=== PATIENT | male | born 1975 | race American Indian/Alaskan Native ===

== ENCOUNTER → 2016-05-24 | Outpatient (CLI) | payer OTHER ==
[~2016-05-24] VITALS: Ht 175.3 cm; Wt 107.0 kg
[~2016-05-24] MED LIST: ALBI1INJ2 SQ; GLYB1.253 PO; HYDR-3516 PO; INSULIN HUMAN REGULAR 1,000 UNITS/10 ML VIAL SQ PRN; LACTATED RINGER'S 1000 ML IV SCH; LISI10TA PO; METF-382 PO; METOPROLOL TARTRATE 25 MG TAB PO PRN; OMEP20TA PO; PROPOFOL 200 MG/20 ML AMP IV ONE; SODIUM CHLORID 0.9% 500 ML IV SCH; VENTAER INH
[2016-05-24 13:06] VITALS: BP 140/88; PULSE 77; RESP 18; TEMP 98.1; O2SAT 100
[2016-05-24 14:53] VITALS: BP 122/82; PULSE 79; RESP 16; O2SAT 99
--- NOTE | 2016-05-30 10:45 | MR ---
cc: DADA GARCIA SAVITHA B. DO DATE 05/24/2016 DATE OF 1975 ENDOSCOPIST Dada Garcia MD [employer]IMARY PL[employer] GUARD Dr. Kermit Hernández PRIMARY CARE PHYSICIAN Dr. Marisela Vuong PROCEDURE EGD with biopsies. INDICATIONS Odynophagia. The patient with a history of accidentally getting piece of metal in the posterior pharynx, currently has mild oral pain in the posterior pharynx. Prior to procedure the patient's lungs were clear. Heart sounds were normal. Mental status alert, awake and oriented times three. Monitoring was done the appropriate monitor at all times, heart rate, respiration, pulse oximetry monitored and they remained within normal limits with ASSISTED LIVING CARE MANAGER support. Informed consent was obtained. Risks, benefits and alternatives including but not limited to the risk of bleeding, infection, perforation, adverse reaction to sedation, failure to identify pathology were explained to the patient who accepted all risks. The patient was prepped in the left lateral position. IV sedation was given by the department of anesthesia which included propofol. The scope tip of the Pentax gastroscope was advanced into the oropharynx under direct visualization. Upon entering in the posterior pharynx in the left lateral tonsillar area he had several small superficial linear ulcerations that are noted. The scope was navigated past this evaluating the uvula. The uvula appears to be slightly edematous with a white based ulcer on the uvula itself. No active bleeding sites were noted. No foreign body was identified within this area. The scope was navigated past this into the posterior pharynx just proximal to the vocal cords and this area appears within normal limits. Again no foreign body was noted. The scope was easily navigated past this point into the proximal middle distal third of the esophagus which appeared grossly normal. The stomach was entered. Gastric fluid was suctioned. Minimal gastritis was noted and therefore, this was biopsied for H. Pylori. The scope tip was retroflexed. The cardia, fundus and body of the stomach were examined and were free of any pathology. The scope was straightened, advanced into the second portion of the duodenum which was examined and which was free of pathology. The scope was withdrawn back and completely withdrawal. The patient tolerated the procedure well, was sent to recovery without any immediate complications. IMPRESSION 1. Several linear shallow superficial ulcerations in the lateral tonsillar area. No active bleeding. No foreign body noted. 2. A white based ulcer on the uvula with some mild surrounding edema not causing any significant obstruction. 3. Normal posterior pharynx including normal vocal cords. 4. Normal esophagus. 5. Minimal gastritis. 6. Normal duodenum. RECOMMENDATIONS 1. Await biopsy results for H pylori. 2. The patient given some Xylocaine spray with a straw which may help to numb the back of the area to help him for symptomatic relief. He has already taken a course of steroids to help with edema and swelling. I do not believe this is necessary at this time. 3. I advised him to continue conservative therapy for now. If symptoms persist then may need evaluation with an ENT physician. Overall, his symptoms are slowly improving, therefore this likely will resolve with watchful waiting. Dada Garcia MD KRP/KK /3:08 PM /10:32 AM CARL
== END ==
LOC: HEND 12:15
PROVIDERS: ATTEND Internal Medicine Gastroenterology
DX: R13.12 Dysphagia, oropharyngeal phase (principal); K21.9 Gastro-esophageal reflux disease without esophagitis; I10 Essential (primary) hypertension; E11.9 Type 2 diabetes mellitus without complications
CPT/HCPCS: 88305

== ENCOUNTER → 2017-09-29 | Outpatient (CLI) | payer OTHER ==
[~2017-09-29] MED LIST changes: -ALBI1INJ2 SQ; +ALPR1TAB3 PO; +AMOXTAB PO; +GLIM4TAB PO; -GLYB1.253 PO; -HYDR-3516 PO; +HYDR1SOL20 PO; -INSULIN HUMAN REGULAR 1,000 UNITS/10 ML VIAL SQ PRN; -LACTATED RINGER'S 1000 ML IV SCH; +LANTINJ SQ; +LISI-515 PO; -LISI10TA PO; +METF1000 PO; -METOPROLOL TARTRATE 25 MG TAB PO PRN; -OMEP20TA PO; +OMEP20TA93 PO; -PROPOFOL 200 MG/20 ML AMP IV ONE; -SODIUM CHLORID 0.9% 500 ML IV SCH; -VENTAER INH
--- NOTE | 2017-09-29 16:02 | RADRPT ---
EXAM DATE: 09/29/2017 3:49 PM EDT AGE/SEX: 42 years / Male INDICATIONS: Short of breath, pain both shoulders, tingling in upper extremities CLINICAL DATA: This is the patient's initial encounter. Patient reports that signs and symptoms have been present for 1 week and indicates a pain score of 0/10. MEDICAL/SURGICAL HISTORY: None. None. COMPARISON: [facility] – [place], CHEST SINGLE AP, 04/22/2016. . FINDINGS: PA and lateral views of the chest demonstrate the lungs to be symmetrically aerated without evidence of mass, infiltrate or effusion. The cardiomediastinal contours are unremarkable. Osseous structures are intact. CONCLUSION: Negative examination. Electronically signed by: Jules Anne MD 09/29/2017 4:01 PM EDT
== END ==
LOC: HRAD 15:28
PROVIDERS: ATTEND Internal Medicine
DX: R06.02 Shortness of breath (principal)
CPT/HCPCS: 71046